=== PATIENT | male | born 1940 | race Caucasian/White ===

== ENCOUNTER → 2019-11-21 | Outpatient (CLI) | payer OTHER ==
[~2019-11-21] MED LIST: AMLO5 PO; AZILECT PO; CARB150; Carbidopa-Levo1 EACH PO; LORA1 PO; METO50ER PO; Pravastatin Sod80 MG PO; TAMSULOSIN HCL0.4 MG PO
== END | disposition home or self-care (01) ==
LOC: LAB 18:01 → LAB SHORT 18:01
DX: R97.20 Elevated prostate specific antigen [PSA] (principal); R30.9 Painful micturition, unspecified
CPT/HCPCS: 87086

== ENCOUNTER → 2020-02-21 | Outpatient (CLI) | payer OTHER ==
[2020-02-21 14:49] LABS: BASOPHILS ABSOLUTE AUTO 0.03 K/mm3 (0.00-0.23); BASOPHILS PERCENT AUTO 1 % (0-2); EOSINOPHILS ABSOLUTE AUTO 0.08 K/mm3 (0.00-0.68); EOSINOPHILS PERCENT AUTO 1 % (0-6); Hematocrit 40.1 % (37.0-53.0); Hemoglobin 13.9 g/dL (13.5-17.5); IMMATURE GRAN ABSOLUTE AUTO 0.01 K/mm3 (0.00-0.10); IMMATURE GRAN PERCENT AUTO 0 % (0-1); LYMPHOCYTES ABSOLUTE AUTO 1.51 K/mm3 (0.84-5.20); LYMPHOCYTES PERCENT AUTO 24 % (21-46); MONOCYTES ABSOLUTE AUTO 0.47 K/mm3 (0.16-1.47); MONOCYTES PERCENT AUTO 7 % (4-13); Mean Corpuscular HGB 31.7 pg (26.0-34.0); Mean Corpuscular HGB Conc 34.7 g/dL (31.5-36.5); Mean Corpuscular Volume 92 fL (80-100); Mean Platelet Volume 10.5 fL (9.1-12.4); NEUTROPHILS ABSOLUTE AUTO 4.24 K/mm3 (1.96-9.15); NEUTROPHILS PERCENT AUTO 67 % (41-73); Platelet Count 207 K/mm3 (150-400); RDW Coefficient Variation 13.2 % (11.7-14.2); RDW Standard Deviation 43.7 fL (35.1-46.3); Red Blood Cell Count 4.38 M/mm3 (4.30-5.90); White Blood Cell Count 6.34 K/mm3 (4.00-11.30)
[2020-02-21 15:03] LABS: Alanine Aminotransfer (ALT/SGP 9 U/L (12-78); Albumin/Globulin Ratio 1.3 (0.8-1.8); Alk Phos 56 U/L (40-126); Anion Gap 11 mmol/L (6-16); Aspartate Aminotrans (AST/SGOT 22 U/L (12-37); Bilirubin, Total 0.7 mg/dL (0.1-1.0); Blood Urea Nitrogen 29 mg/dL (8-24); Bun/Creatinine Ratio 25.2 (12.0-20.0); CO2, Blood 28 mmol/L (21-32); CPK Creatine Kinase 94 U/L (39-308); Calcium, Blood 8.8 mg/dL (8.5-10.1); Chloride, Blood 107 mmol/L (98-108); Creatinine, Blood 1.15 mg/dL (0.60-1.20); Globulin, Blood 3.1 g/dL (2.2-4.0); Glomerular Filtration Rate >60 (60-); Glucose, Blood 90 mg/dL (70-99); Potassium, Blood 3.4 mmol/L (3.5-5.5); Sodium, Blood 146 mmol/L (136-145); Total Protein, Blood 7.1 g/dL (6.4-8.2)
[2020-02-21 15:08] LABS: Troponin I <0.017 ng/mL (0.000-0.040)
== END | disposition home or self-care (01) ==
LOC: LAB SHORT 14:44 → LAB EV 14:44
PROVIDERS: Physician Assistant
DX: R07.9 Chest pain, unspecified (principal)
CPT/HCPCS: 80053; 82550; 84484; 85025

== ENCOUNTER 2020-06-15 10:21 | Observation (INO) | payer OTHER ==
[~2020-06-15] VITALS: Ht 167.6 cm; Wt 70.3 kg
[~2020-06-15 10:21] MED LIST changes: -CARB150; +CARBIDOPA-LEVO1 EA21 PO; -Carbidopa-Levo1 EACH PO; +RYTARY ER 61.21 EAC1 PO
[2020-06-15] MEDS ORDERED: HYDCHL25 PO (10:56)
[2020-06-15] MEDS ORDERED: ENTA200 PO (10:56)
[2020-06-15] MEDS ORDERED: LOSA50 PO (10:57)
[2020-06-15 11:03] LABS: BASOPHILS ABSOLUTE AUTO 0.02 K/mm3 (0.00-0.23); BASOPHILS PERCENT AUTO 0 % (0-2); EOSINOPHILS ABSOLUTE AUTO 0.06 K/mm3 (0.00-0.68); EOSINOPHILS PERCENT AUTO 1 % (0-6); Hematocrit 40.6 % (37.0-53.0); Hemoglobin 13.5 g/dL (13.5-17.5); IMMATURE GRAN ABSOLUTE AUTO 0.02 K/mm3 (0.00-0.10); IMMATURE GRAN PERCENT AUTO 0 % (0-1); LYMPHOCYTES ABSOLUTE AUTO 1.13 K/mm3 (0.84-5.20); LYMPHOCYTES PERCENT AUTO 18 % (21-46); MONOCYTES ABSOLUTE AUTO 0.52 K/mm3 (0.16-1.47); MONOCYTES PERCENT AUTO 8 % (4-13); Mean Corpuscular HGB Conc 33.3 g/dL (31.5-36.5); Mean Corpuscular Volume 93 fL (80-100); Mean Platelet Volume 10.5 fL (9.1-12.4); NEUTROPHILS ABSOLUTE AUTO 4.62 K/mm3 (1.96-9.15); NEUTROPHILS PERCENT AUTO 73 % (41-73); Platelet Count 177 K/mm3 (150-400); RDW Coefficient Variation 12.7 % (11.7-14.2); RDW Standard Deviation 44.1 fL (35.1-46.3); Red Blood Cell Count 4.35 M/mm3 (4.30-5.90); White Blood Cell Count 6.37 K/mm3 (4.00-11.30)
[2020-06-15 11:19] LABS: International Normalized Ratio 0.98; Prothrombin Time Results 10.5 Sec (9.7-11.5)
[2020-06-15 11:23] LABS: Alanine Aminotransfer (ALT/SGP <6 U/L (12-78); Albumin, Blood 3.6 g/dL (3.4-5.0); Albumin/Globulin Ratio 1.4 (0.8-1.8); Alk Phos 48 U/L (50-136); Anion Gap 5 mmol/L (6-16); Aspartate Aminotrans (AST/SGOT 13 U/L (12-37); Bilirubin, Total 0.7 mg/dL (0.1-1.0); Blood Urea Nitrogen 23 mg/dL (8-24); Bun/Creatinine Ratio 24.9 (12.0-20.0); CO2, Blood 24 mmol/L (21-32); Calcium, Blood 8.4 mg/dL (8.5-10.1); Chloride, Blood 112 mmol/L (98-108); Creatinine, Blood 0.92 mg/dL (0.60-1.20); Globulin, Blood 2.6 g/dL (2.2-4.0); Glomerular Filtration Rate >60 (60-); Glucose, Blood 113 mg/dL (70-99); Potassium, Blood 3.6 mmol/L (3.5-5.5); Sodium, Blood 141 mmol/L (136-145); Total Protein, Blood 6.2 g/dL (6.4-8.2)
[2020-06-15 13:00] LABS: Source, Urine Clean Catch
[2020-06-15 13:05] LABS: Appearance, Urine Clear (Clear); Bilirubin, Urine Neg (Neg); Blood, Urine Neg (Neg); Color, Urine Yellow (P-Yellow); Glucose Qualitative, Urine Neg (Neg); Ketones, Urine Neg (Neg); Leukocyte Esterase, Urine Neg (Neg); Nitrite, Urine Neg (Neg); Protein, Urine Neg (Neg); Specific Gravity, Urine 1.005 (1.003-1.022); Urobilinogen, Urine NORM (Normal)
[2020-06-15] MEDS ORDERED: TERA5 PO (13:14)
--- NOTE | 2020-06-15 18:07 | NUR ---
NEW ER ADMIT ARRIVE TO APPROX 1630 FROM ER. HE IS ABLE TO AMBULATE FROM RNEY TO & TO BED. HE IS A/O X4, SOMEWHAT MILLE LACS w BUE TREMOR R/T HX PARKINSONS. HE STATE REASON FOR HOSP EXTREME RLE WEAKNESS & LIGHTHEADEDNESS THIS AM THAT HAS RESOLVED @ THIS TIME. HE HAS NO FACIAL DROOP OR SPEECH DEFICITS. NO N/T. CT HEAD WAS NEGATIVE HOWEVER DR AYALA STATE DX CVA. DR AYALA STATE SWALLOW NOT AFFECTED, ORDER CARDIAC DIET. BP ELEVATED, DR AYALA AWARE, WILL MX FOR NOW. PT IS PLEASANT/COOPERATIVE. HOME MEDS CLARIFIED.
[2020-06-16 04:09] LABS: BASOPHILS ABSOLUTE AUTO 0.03 K/mm3 (0.00-0.23); BASOPHILS PERCENT AUTO 1 % (0-2); EOSINOPHILS ABSOLUTE AUTO 0.15 K/mm3 (0.00-0.68); EOSINOPHILS PERCENT AUTO 3 % (0-6); Hematocrit 44.7 % (37.0-53.0); Hemoglobin 14.7 g/dL (13.5-17.5); IMMATURE GRAN ABSOLUTE AUTO 0.01 K/mm3 (0.00-0.10); IMMATURE GRAN PERCENT AUTO 0 % (0-1); LYMPHOCYTES ABSOLUTE AUTO 1.56 K/mm3 (0.84-5.20); LYMPHOCYTES PERCENT AUTO 32 % (21-46); MONOCYTES ABSOLUTE AUTO 0.42 K/mm3 (0.16-1.47); MONOCYTES PERCENT AUTO 9 % (4-13); Mean Corpuscular HGB 31.2 pg (26.0-34.0); Mean Corpuscular HGB Conc 32.9 g/dL (31.5-36.5); Mean Corpuscular Volume 95 fL (80-100); Mean Platelet Volume 10.2 fL (9.1-12.4); NEUTROPHILS ABSOLUTE AUTO 2.66 K/mm3 (1.96-9.15); NEUTROPHILS PERCENT AUTO 55 % (41-73); Platelet Count 169 K/mm3 (150-400); RDW Coefficient Variation 12.6 % (11.7-14.2); RDW Standard Deviation 44.4 fL (35.1-46.3); Red Blood Cell Count 4.71 M/mm3 (4.30-5.90); White Blood Cell Count 4.83 K/mm3 (4.00-11.30)
[2020-06-16 04:34] LABS: Alanine Aminotransfer (ALT/SGP 9 U/L (12-78); Albumin, Blood 3.5 g/dL (3.4-5.0); Albumin/Globulin Ratio 1.1 (0.8-1.8); Alk Phos 50 U/L (50-136); Anion Gap 5 mmol/L (6-16); Aspartate Aminotrans (AST/SGOT 22 U/L (12-37); Bilirubin, Total 0.9 mg/dL (0.1-1.0); Blood Urea Nitrogen 20 mg/dL (8-24); CO2, Blood 22 mmol/L (21-32); Calcium, Blood 8.4 mg/dL (8.5-10.1); Chloride, Blood 114 mmol/L (98-108); Creatinine, Blood 0.77 mg/dL (0.60-1.20); Globulin, Blood 3.2 g/dL (2.2-4.0); Glomerular Filtration Rate >60 (60-); Glucose, Blood 85 mg/dL (70-99); Potassium, Blood 4.1 mmol/L (3.5-5.5); Sodium, Blood 141 mmol/L (136-145); Total Protein, Blood 6.7 g/dL (6.4-8.2)
--- NOTE | 2020-06-16 05:56 | NUR ---
RN PRIMARY CARE SUMMARY No change in Neuro status from original status. A&OX4, no episodes of lightheadedness, near syncope or right leg weakness, numbness or tingling. Patient's biggest concern is that the medication schedule here in the hospital is much different than how he takes his parkinsons medications at home. Patient requesting changes be made today with the help of day pharmacy and hospitalist
--- NOTE | 2020-06-16 12:18 | NUR ---
echocardiogram complete
[2020-06-16] MEDS ORDERED: ATOR80 PO (15:24)
[2020-06-16] MEDS ORDERED: CLOP75 PO (15:24)
[2020-06-16] MEDS ORDERED: ASPI325 PO (15:27)
--- NOTE | 2020-06-16 16:29 | NUR ---
SUMMARY/DISCHARGE THIS AM PT STATE MILD LIGHTHEADEDNESS WHEN UP HOWEVER IMPROVED FROM PREVIOUS DAY. STATE ABNORMAL RLE WEAKNESS HAS IMPROVED, FEELS NEAR BASELINE. STATE NO H/A. BP IMPROVED 133/87. HE AMBULATED IN [facility] w [facility], STATE PT WILL NOT NEED SNF, RECOMMEND HOME. DR AYALA IN THIS AFTERNOON TO ASSESS, PLACE D/C HOME ORDERS. IV'S D/C INTACT. [facility]. D/C INSTRUCT REVIEWED w PT/FAMILY, EMPHASIS ON STROKE PREVENTION & NEW MEDS. THEY ARE PLEASANT/APPRECIATIVE. PT STATE READY FOR D/C HOME. W/C ESCORT FROM HOSP PROVIDED.
== END 2020-06-16 16:15 | disposition home or self-care (01) ==
LOC: ER 10:21 → MEDS 13:29
PROVIDERS: Emergency Medicine; ADMIT Internal Medicine Endocrinology, Diabetes & Metabolism
DX: I63.9 Cerebral infarction, unspecified (principal); I25.10 Atherosclerotic heart disease of native coronary artery without angina pectoris; I10 Essential (primary) hypertension; G20 Parkinson's disease; N40.1 Benign prostatic hyperplasia with lower urinary tract symptoms; N13.8 Other obstructive and reflux uropathy; E78.00 Pure hypercholesterolemia, unspecified; I65.29 Occlusion and stenosis of unspecified carotid artery; Z79.82 Long term (current) use of aspirin; Z79.899 Other long term (current) drug therapy; Z79.02 Long term (current) use of antithrombotics/antiplatelets; E78.5 Hyperlipidemia, unspecified
CPT/HCPCS: 36415; 70450; 70496; 71045; 80053; 81003; 85025; 85610; 85730; 93005; 93010; 93306; 93880; 97110; 97116; 97161; A9270-GY; J1650; Q9967

== ENCOUNTER 2021-02-08 08:25 | Observation (INO) | payer OTHER ==
[~2021-02-08] VITALS: Ht 167.6 cm; Wt 73.1 kg
[~2021-02-08 08:25] MED LIST changes: +ASPI325 PO; +ATOR80 PO; +CLOP75 PO; +ENTA200 PO; +HYDCHL25 PO; +LOSA50 PO; +TERA5 PO
[2021-02-08] MEDS ORDERED: SILODOSIN8 MG PO (08:31)
[2021-02-08] MEDS ORDERED: TOPROL XL25 MG PO (08:31)
[2021-02-08] MEDS ORDERED: LOSARTAN POTAS100 M1 PO (08:32)
[2021-02-08 08:38] LABS: BASOPHILS ABSOLUTE AUTO 0.03 K/mm3 (0.00-0.23); BASOPHILS PERCENT AUTO 1 % (0-2); EOSINOPHILS PERCENT AUTO 2 % (0-6); Hematocrit 39.2 % (37.0-53.0); Hemoglobin 12.9 g/dL (13.5-17.5); IMMATURE GRAN ABSOLUTE AUTO 0.01 K/mm3 (0.00-0.10); IMMATURE GRAN PERCENT AUTO 0 % (0-1); LYMPHOCYTES ABSOLUTE AUTO 1.72 K/mm3 (0.84-5.20); LYMPHOCYTES PERCENT AUTO 27 % (21-46); MONOCYTES PERCENT AUTO 8 % (4-13); Mean Corpuscular HGB 31.5 pg (26.0-34.0); Mean Corpuscular HGB Conc 32.9 g/dL (31.5-36.5); Mean Corpuscular Volume 96 fL (80-100); Mean Platelet Volume 10.5 fL (9.1-12.4); NEUTROPHILS ABSOLUTE AUTO 3.91 K/mm3 (1.96-9.15); NEUTROPHILS PERCENT AUTO 62 % (41-73); Platelet Count 178 K/mm3 (150-400); RDW Coefficient Variation 13.2 % (11.7-14.2); RDW Standard Deviation 46.6 fL (35.1-46.3); Red Blood Cell Count 4.09 M/mm3 (4.30-5.90); White Blood Cell Count 6.27 K/mm3 (4.00-11.30)
[2021-02-08 08:54] LABS: International Normalized Ratio 1.02
[2021-02-08 09:06] LABS: Alanine Aminotransfer (ALT/SGP 8 U/L (12-78); Albumin, Blood 3.7 g/dL (3.4-5.0); Albumin/Globulin Ratio 1.4 (0.8-1.8); Alk Phos 62 U/L (50-136); Anion Gap 5 mmol/L (6-16); Aspartate Aminotrans (AST/SGOT 19 U/L (12-37); Bilirubin, Total 0.8 mg/dL (0.1-1.0); Blood Urea Nitrogen 20 mg/dL (8-24); CO2, Blood 24 mmol/L (21-32); Calcium, Blood 8.5 mg/dL (8.5-10.1); Chloride, Blood 114 mmol/L (98-108); Creatinine, Blood 0.77 mg/dL (0.60-1.20); Globulin, Blood 2.7 g/dL (2.2-4.0); Glomerular Filtration Rate >60 (60-); Glucose, Blood 114 mg/dL (70-99); Potassium, Blood 3.7 mmol/L (3.5-5.5); Sodium, Blood 143 mmol/L (136-145); Total Protein, Blood 6.4 g/dL (6.4-8.2); Troponin I <0.015 ng/mL (0.000-0.040)
--- NOTE | 2021-02-08 14:00 | NUR ---
Echocardiogram performed.
--- NOTE | 2021-02-08 17:28 | NUR ---
Shift Summary A/Ox3, pleasant. Up in room with 1P/gait. Calls for needs appropriately. Has urgency and frequency voids. Received report from Sofie VERA-RN, patient arrived to unit via gurney, self transferred to bed. RA, Tele: SR. Denies pain. Neuro checks WNL. Had one episode of anxiety where patient stated "I don't feel good" but could not describe feeling. Patient reports "feeling like I did this morning" but denied weakness, dizziness, diplopia, headache, short of breath. was at bedside during this incident and reported patient being shaky and that it was different from tremors. This RN assessed and neuro check remains unchanged from initial assessment except bilat hand handle rounder operator were slightly weaker. Room thermostat was also turned all the up and room was warm. VSS, afebrile. Patient reports feeling better after about 10 minutes. Had MRI of head done, but refused to do MRI of neck. Gait is unsteady and shuffling, sometimes pt trips on own non-skid socks. IV remains patent, 20g L wrist is saline locked. Speech remains slightly slurred and patient has difficulty finding words which was apparent upon receipt of patient. WCTM and report to oncoming RN.
--- NOTE | 2021-02-08 18:21 | NUR ---
Reviewed pt's code status with him, as well as possible choices and what they each mean. Pt does state at this time that he would like to change his statues to DNR with limited interventions. However, he hesitated prior to signing as he states he and his promised to fill them out together, and she will be in during visiting hours tomorrow.
[2021-02-09 04:36] LABS: BASOPHILS ABSOLUTE AUTO 0.02 K/mm3 (0.00-0.23); BASOPHILS PERCENT AUTO 0 % (0-2); EOSINOPHILS ABSOLUTE AUTO 0.09 K/mm3 (0.00-0.68); EOSINOPHILS PERCENT AUTO 2 % (0-6); Hematocrit 39.2 % (37.0-53.0); Hemoglobin 13.2 g/dL (13.5-17.5); IMMATURE GRAN ABSOLUTE AUTO 0.01 K/mm3 (0.00-0.10); IMMATURE GRAN PERCENT AUTO 0 % (0-1); LYMPHOCYTES ABSOLUTE AUTO 1.08 K/mm3 (0.84-5.20); LYMPHOCYTES PERCENT AUTO 21 % (21-46); MONOCYTES ABSOLUTE AUTO 0.49 K/mm3 (0.16-1.47); MONOCYTES PERCENT AUTO 10 % (4-13); Mean Corpuscular HGB 31.1 pg (26.0-34.0); Mean Corpuscular HGB Conc 33.7 g/dL (31.5-36.5); Mean Corpuscular Volume 92 fL (80-100); Mean Platelet Volume 10.2 fL (9.1-12.4); NEUTROPHILS ABSOLUTE AUTO 3.38 K/mm3 (1.96-9.15); NEUTROPHILS PERCENT AUTO 67 % (41-73); Platelet Count 188 K/mm3 (150-400); RDW Coefficient Variation 13.2 % (11.7-14.2); RDW Standard Deviation 44.7 fL (35.1-46.3); Red Blood Cell Count 4.25 M/mm3 (4.30-5.90); White Blood Cell Count 5.07 K/mm3 (4.00-11.30)
[2021-02-09 04:58] LABS: Anion Gap 5 mmol/L (6-16); Blood Urea Nitrogen 20 mg/dL (8-24); Bun/Creatinine Ratio 28.4 (12.0-20.0); CO2, Blood 26 mmol/L (21-32); Calcium, Blood 8.4 mg/dL (8.5-10.1); Chloride, Blood 111 mmol/L (98-108); Creatinine, Blood 0.71 mg/dL (0.60-1.20); Glomerular Filtration Rate >60 (60-); Glucose, Blood 86 mg/dL (70-99); Potassium, Blood 3.5 mmol/L (3.5-5.5); Sodium, Blood 142 mmol/L (136-145)
--- NOTE | 2021-02-09 06:45 | NUR ---
ELECTRICAL INSPECTOR SUMMARY BILL DID WELL OVERNIGHT. NO COMPLAINTS OF DISCOMFORT. NEURO CHECKS ALL WNL WITH EXCEPTION OF BASELINE PARKINSON'S CHARACTERISTICS. PROBLEM WITH MED TIMES ON PATIENT'S OWN SCHEDULED RYTARY. TIMES LISTED ON BOTTLE FROM PHARMACY HAVE BEEN CHANGED SINCE RX WAS FILLED. A&OX4, PLEASANT AND VERY COOPERATIVE WITH CARE.
[2021-02-09] MEDS ORDERED: ASPI81CH PO (12:09)
[2021-02-09] MEDS ORDERED: CLOP75 PO (12:10)
--- NOTE | 2021-02-09 13:25 | NUR ---
Discharge Summary A/Ox3, pleasant and cooperative with care. Calls appropriately for needs. Up with SBA FWW gait. Discharging to home. Reviewed discharge paperwork with patient and at bedside. Copy given. Had Palliative Care RN Maria M discuss advanced care planning with both prior to discharge. IV removed. Personal belongings including home medication and phone bagged and sent home with patient. Escorted by INSURANCE VERIFICATION REP via w/c.
== END 2021-02-09 13:22 | disposition home or self-care (01) ==
LOC: ER 08:25 → MEDS 08:26
PROVIDERS: Emergency Medicine; ADMIT Family Medicine
DX: I63.9 Cerebral infarction, unspecified (principal); I25.10 Atherosclerotic heart disease of native coronary artery without angina pectoris; I10 Essential (primary) hypertension; G20 Parkinson's disease; N40.0 Benign prostatic hyperplasia without lower urinary tract symptoms; E78.5 Hyperlipidemia, unspecified; Z86.73 Personal history of transient ischemic attack (TIA), and cerebral infarction without residual deficits
CPT/HCPCS: 36415; 70450; 70544; 80048; 80053; 84484; 85025; 85610; 85730; 93005; 93010; 93306; 97116; 97162; 99285-25; A9270; G0378